=== PATIENT | female | born 1960 | race Asian ===

== ENCOUNTER 2018-01-25 22:39 | Emergency (ER) | payer MEDICAID ==
[~2018-01-25] VITALS: Ht 154.9 cm; Wt 47.9 kg
[~2018-01-25 22:39] MED LIST: FLUT16SP2; LORA10CA; PRED20TA
[2018-01-25 22:48] VITALS: BP 171/83
== END 2018-01-26 00:23 | disposition home or self-care (01) ==
LOC: ED 23:59
DX: J30.9 Allergic rhinitis, unspecified (principal); Z76.0 Encounter for issue of repeat prescription; F17.200 Nicotine dependence, unspecified, uncomplicated; Z88.5 Allergy status to narcotic agent; Z79.82 Long term (current) use of aspirin
CPT/HCPCS: 99283